=== PATIENT | male | born 1990 | race African-American/Black ===

== ENCOUNTER → 2016-07-19 | Outpatient (CLI) | payer BC ==
--- NOTE | 2016-07-19 15:21 | RAD ---
Right knee, 3 views, 07/19/2016: History: Knee pain No fracture or dislocation is identified. No significant arthritic change is seen. IMPRESSION: No significant bony abnormality is detected.
== END | disposition home or self-care (01) ==
LOC: RAD 14:49
PROVIDERS: ATTEND Physician Assistant Medical
DX: M25.561 Pain in right knee (principal)
CPT/HCPCS: 73562